=== PATIENT | female | born 1950 | race Caucasian/White ===

== ENCOUNTER 2018-11-26 09:58 | Outpatient (CLI) | payer MEDICARE, OTHER ==
--- NOTE | 2018-11-26 12:15 | ULT ---
ABDOMINAL ULTRASOUND: Date: 11/26/18 HISTORY: Left lower quadrant abdominal pain. FINDINGS: The visualized portions of the pancreas, visualized portions of the IVC, abdominal aorta, liver, gall bladder, spleen, and bilateral kidneys demonstrate a normal sonographic appearance. Right kidney jose ures 8.7 cm in length. Left kidney measures 8.8 cm in length. The common duct measures 0.2 cm diamete r, which is within normal limits. IMPRESSION: 1. Normal abdominal ultrasound. No gallbladder calculi visualized. 2. Limited sonographic images were obtained in the region of the left lower quadrant. No obvious mas s or fluid collection is visualized on limited visualization of this region. POS: ALFREDO
== END 2018-11-26 09:59 | disposition home or self-care (01) ==
LOC: BICULT 09:58
DX: R10.9 Unspecified abdominal pain (principal)
CPT/HCPCS: 76700